=== PATIENT | male | born 1950 | race Caucasian/White ===

== ENCOUNTER 2017-08-22 11:58 | Day surgery (SDC) | payer OTHER ==
[~2017-08-22] VITALS: Ht 177.8 cm; Wt 147.5 kg
[~2017-08-22 11:58] MED LIST: ACET250T2 PO; ALBU6.7H INH; AMIT25TA PO; ATOR-2 PO; ATOR40TA78 PO; BENZ-17 PO; BISM262T9 PO; BUDE10.2 INH; CHOL100012 PO; CYAN100072 PO; DABI150C PO; DEXT1DRO6 EACHEYE; FURO40TA6 PO; LISI5TAB7 PO; LORA10TA3 PO; METO25TA35 PO; MINE120C TP; MULT-108 PO; OMEP40CA6 PO; POTA25TA4 PO; PRED10TA PO; RANI150T4 PO; RIVA20TA PO; SILD20TA2 PO; SIME80TA16 PO; TRAM50TA2 PO; URSO250T9 PO; [UNRECOGNIZED DRUG - CODE] TP
[2017-08-22 12:41] VITALS: BP 148/80
[2017-08-22] MEDS ORDERED: LACTATED RINGERS 1,000 ML IV SCH (12:56)
[2017-08-22] MEDS ORDERED: ROCURONIUM 10 MG/ML,10ML ONE (13:51)
[2017-08-22] MEDS ORDERED: PROPOFOL 10 MG/ML, 20ML ONE (13:51)
[2017-08-22] MEDS ORDERED: DEXAMETHASONE 4 MG/ML, 5ML ONE (13:51)
[2017-08-22] MEDS ORDERED: EPINEPHRINE 1 MG/ML, 1ML ONE (13:51)
[2017-08-22] MEDS ORDERED: SUCCINYLCHOLINE 20 MG/ML, 10ML ONE (13:51)
[2017-08-22] MEDS ORDERED: PROMETHAZINE 25 MG/ML, 1ML IV PRN (15:00)
[2017-08-22] MEDS ORDERED: LABETALOL 5MG/ML, 20ML IV PRN (15:00)
[2017-08-22] MEDS ORDERED: hydrALAzine 20 MG/ML, 1ML IV PRN (15:00)
[2017-08-22] MEDS ORDERED: FENTANYL PF 100 MCG/2ML IV PRN (15:00)
[2017-08-22] MEDS ORDERED: OXYcodone 5 MG/5 ML ORAL.SOL UDC PO PRN (15:00)
[2017-08-22] MEDS ORDERED: ONDANSETRON 2MG/ML, 2ML IVPush PRN (15:00)
[2017-08-22] MEDS ORDERED: MEPERIDINE/PF 25MG/0.5ML IVPush PRN (15:00)
[2017-08-22] MEDS ORDERED: ALBUTEROL SULFATE 2.5 MG/3 ML NPPB PRN (15:00)
[2017-08-22] MEDS ORDERED: HYDROmorphone 1 MG/ML, 1ML IV PRN (15:00)
[2017-08-22] MEDS ORDERED: MIDAZOLAM 1 MG/ML, 2ML IV PRN (15:00)
== END 2017-08-22 16:05 | disposition home or self-care (01) ==
LOC: OUT 11:58
PROVIDERS: ATTEND Internal Medicine Gastroenterology
DX: K80.50 Calculus of bile duct without cholangitis or cholecystitis without obstruction (principal); J44.9 Chronic obstructive pulmonary disease, unspecified; G47.33 Obstructive sleep apnea (adult) (pediatric); Z90.49 Acquired absence of other specified parts of digestive tract; Z87.891 Personal history of nicotine dependence; Z87.39 Personal history of other diseases of the musculoskeletal system and connective tissue
CPT/HCPCS: 43261; 43264; 74328; 88305; 93005; 94660; C1769; J0171; J0330; J1100; J2704; J7120

== ENCOUNTER 2020-02-16 12:37 | Outpatient (CLI) | payer OTHER ==
[~2020-02-16 12:37] MED LIST changes: -ALBU6.7H INH; +ALBU6.7H8 INH; +LORA-247 PO; -LORA10TA3 PO; +OMEP40CA42 PO; -OMEP40CA6 PO
== END 2020-02-16 23:59 | disposition home or self-care (01) ==
LOC: PETCFH 12:37
PROVIDERS: ATTEND Internal Medicine Hematology & Oncology
DX: C34.32 Malignant neoplasm of lower lobe, left bronchus or lung (principal); J98.11 Atelectasis; R91.8 Other nonspecific abnormal finding of lung field; K40.20 Bilateral inguinal hernia, without obstruction or gangrene, not specified as recurrent; N28.1 Cyst of kidney, acquired; K83.8 Other specified diseases of biliary tract
CPT/HCPCS: 78815; A9552